=== PATIENT | male | born 1955 | race Caucasian/White ===

== ENCOUNTER 2017-06-17 16:08 | Emergency (ER) | payer MEDICARE, MEDICAID ==
[2017-06-17 16:42] LABS: URINE MICROSCOPIC INDICATED? YES; URINE SOURCE CLEAN C
[2017-06-17 16:45] LABS: URINE BILIRUBIN NEGATIVE (NEGATIVE); URINE BLOOD NEGATIVE (NEGATIVE); URINE GLUCOSE (UA) 100 mg/dL (NEGATIVE); URINE KETONE NEGATIVE (NEGATIVE); URINE LEUKOCYTE ESTERASE NEGATIVE (NEGATIVE); URINE NITRATE NEGATIVE (NEGATIVE); URINE PROTEIN NEGATIVE (NEGATIVE); URINE UROBILINOGEN 0.2 E.U./dL (0.2 - 1.0)
[2017-06-17 16:53] LABS: URINE CLARITY CLEAR (CLEAR); URINE COLOR YELLOW
[2017-06-17 16:54] LABS: URINE BACTERIA NONE SEEN /hpf (NONE SEEN); URINE EPITHELIAL CELLS RARE /lpf (FEW); URINE RBC 0-1 /hpf (0-5); URINE WBC 0-2 /hpf (0-5)
[2017-06-17 17:04] LABS: % BASOPHILS 0.5 % (0.0-2.0); % EOSINOPHILS 2.1 % (0.0-5.0); % LYMPHOCYTES 15.4 % (20.0-50.0); BASOPHILE ABSOLUTE 0.1 Th/cumm (0-0.2); EOSINOPHILE ABSOLUTE 0.2 Th/cmm (0.1-0.4); HEMATOCRIT 44.1 % (41.0-60); HEMOGLOBIN 14.7 gm/dL (12-16); LYMPHOCYTE ABSOLUTE 1.7 Th/cmm (1.5-3.0); MEAN CELL VOLUME 95.9 fl (80-99); MEAN CORPUSCULAR HEMOGLOBIN 31.9 pg (26.0-30.0); MEAN CORPUSCULAR HGB CONC 33.2 pg (28.0-36.0); MEAN PLATELET VOLUME 7.2 fl; MONOCYTE ABSOLUTE 0.3 Th/cmm (0.3-1.0); NEUTROPHILE ABSOLUTE 8.5 Th/cmm (1.8-8.0); PLATELET COUNT 328 Th/cmm (150-400); RED CELL DISTRIBUTION WIDTH 12.4 % (11.5-20.0); WHITE BLOOD COUNT 10.8 Th/cmm (4.8-10.8)
--- NOTE | 2017-06-17 17:11 | ED Physician Chart ---
ED Chief Complaint/HPI - Patient Information Date Seen:: 06/17/17 Time Seen:: 16:45 Chief Complaint:: PT SUSTAINED STRAIN TO HIS LOW BACK COUPLE OF DAYS AGO. History of Present Illness:: HE RATES THE SEVERITY OF DISCOMFORT A 5/10. THE PAIN DOES NOT RADIATE TO HIS ABDOMEN OR INTO EITHER LOWER EXTREMITY. THERE IS NO ASSOCIATED WEAKNESS OR LOSS OF SENSATION IN EITHER LOWER EXTREMITY. THERE IS NO ASSOCIATED URINARY RETENTION OR INCONTINENCE. HE DENIES ANY FEVER OR CHILLS. NO DYSURIA, HEMATURIA OR URINARY FREQUENCY. Allergies:: Allergies Allergy/AdvReac Type Severity Reaction Status Date / Time No Known Allergies Allergy Verified 06/17/17 16:10 Vitals:: Vital Signs - 8 hr 06/17/17 16:10 Temp 98.6 F HR 101 RR 16 BP 150/86 O2 Sat % 95 ED Review of Systems - Review of Systems General/Constitutional: No fever, No chills, No weight loss, No diaphoresis, Other (patient has difficulty walking and is waiting for his sister to bring him again.) Skin: No skin lesions, No rash, No bruising Head: No headache Eyes: No loss of vision, No diplopia ENT: No earache, No nasal drainage, No sore throat Neck: No swelling, No stiffness, No mass noted Cardio Vascular: No chest pain, No palpitations, No PND, No orthopnea, No edema Pulmonary: No SOB, No cough, No sputum (No hematemesis), No wheezing GI: No nausea, No vomiting, No diarrhea G/U: No dysuria, No frequency, No hematuria, No nacturia Musculoskeletal: Bone or joint pain, Back pain Endocrine: No polyuria, No polydipsia Psychiatric: No prior psych history, No depression, No anxiety, No suicidal ideation Hematopoietic: No bruising, No lymphadenopathy Allergic/Immuno: No urticaria, No angioedema Neurological: No syncope, No focal symptoms, Weakness, Paresthesia, No paresthesia, No headache, No seizure, No dizziness, No confusion, No vertigo ED Past Medical History - Past Medical History Past Medical History: Dementia Social History: Non Smoker, No Alcohol, No Drug Use, Single, Care Facility Family Medical History - Family Member Mother Hx Family Cancer: No Hx Family Coronary Artery Disease: No Hx Family Stroke: No Hx Family Diabetes: No Hx Family Dementia: No Hx Family AIDS: No Hx Family HIV: No Hx Family Hepatitis: No ED Physical Exam - Physical Examination General/Constitutional: Awake, Well-developed, well-nourished, Non-toxic appearing Other Gen/Cons comments:: AMBULATORY WITH ASSISTANCE. Head: Atraumatic Eyes: Lids, conjuctiva normal, PERRL, EOMI Other Eyes comments:: NO NYSTAGMUS ED Labs/Radiology/EKG Results - Lab Results Results: Laboratory Tests 06/17/17 16:10 Urine Source CLEAN C Urine Color YELLOW Urine Clarity CLEAR Urine pH 6.0 Ur Specific [place] 1.010 Urine Protein NEGATIVE Urine Glucose (UA) 100 H Urine Ketones NEGATIVE Urine Blood NEGATIVE Urine Nitrate NEGATIVE Urine Bilirubin NEGATIVE Urine Urobilinogen 0.2 Ur Leukocyte Esterase NEGATIVE Urine RBC 0-1 Urine WBC 0-2 Ur Epithelial Cells RARE Urine Bacteria NONE SEEN The UA is negative for any evidence of UTI. Both the amylase and lipase were within the normal range. ED Assessment - Assessment General Assessment: CASE SUMMONY: PT WITH PAIN IN LOW BACK AFTER MINOR CONFRONTATION WITH ANOTHER ROZ AT HIS FACILITY. NO SPINAL TENDERNESS AND NO CVA TENDERNESS. PT' S PAIN WAS ADDRESSED WITH PO IBUPROFEN. NO SPINAL TENDERNESS TO PALPATION. MDM DDX FOR BACK PAIN. NOT PANCREATITIS based on normal amylase and lipase values. NOT UTI Based on normal urinalysis. NOT SPINAL INJURY Based on the patient's history and lack of tenderness. NOT AORTIC DISECTION BASED ON HISTORY AND PHYSCAL EXAM WITH GOOD DISTAL PULSES. ED Septic Shock - . Is Septic Shock (SBP<90, OR Lactate>4 mmol\L) present?: No - <6hrs of presentation: Vital Signs: Vital Signs - 8 hr 06/17/17 16:10 Temp 98.6 F HR 101 RR 16 BP 150/86 O2 Sat % 95 ED Reassessment (Disposition) - Reassessment Reassessment Condition:: Improved - Diagnosis Diagnosis:: LUMBER STRAIN - Aftercare/Follow up Instructions Aftercare/Follow-Up Instructions:: Refer to Discharge Instructions ED Discharge Plan - Patient Disposition Admit/Discharge/Transfer: Discharge/Transfered to SNF Condition at Disposition: Improved Prescriptions: RX: Ibuprofen 800 mg PO TID PRN #20 tablet PRN Reason: Pain (Moderate) Zolpidem Tartrate [Ambien] 5 mg PO HS PRN #5 tablet PRN Reason: Restlessness Instructions: Stress
[2017-06-17 17:21] LABS: ALB/GLOB RATIO 1.8 (1.0-1.8); ALBUMIN 4.6 gm/dL (4.2-5.5); ALKALINE PHOSPHATASE 53 U/L (34-104); AMYLASE SERUM 46 U/L (29-103); ANION GAP 11.9 (7.0-16.0); BILIRUBIN,TOTAL 0.3 mg/dL (0.3-1.0); BUN - UREA NITROGEN 17 mg/dL (7-25); CARBON DIOXIDE 27.2 mEq/L (21.0-31.0); CHLORIDE 94 mEq/L (98-107); CREATININE - SERUM 0.8 mg/dL (0.7-1.3); GFR AFRICAN-AMERICAN > 60.0 ml/min (>90); GFR NON AFRICAN-AMERICAN > 60.0 ml/min; GLUCOSE 135 mg/dL (70-105); LIPASE 17 U/L (11-82); POTASSIUM SERUM 4.1 mEq/L (3.5-5.1); SGOT 14 U/L (13-39); SGPT/ALT 9 U/L (7-52); SODIUM SERUM 129 mEq/L (136-145); TOTAL PROTEIN,SERUM 7.2 gm/dL (6.0-8.3)
== END 2017-06-17 19:30 ==
LOC: ER 16:08
DX: S39.012A Strain of muscle, fascia and tendon of lower back, initial encounter (principal); X58.XXXA Exposure to other specified factors, initial encounter; Y93.89 Activity, other specified; Y92.89 Other specified places as the place of occurrence of the external cause; Y99.8 Other external cause status
CPT/HCPCS: 36415-UA; 80053-TC; 81001-TC; 82150-TC; 83690-TC; 85025-TC; Z7502